=== PATIENT | male | born 2000 | race Caucasian/White ===

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

== ENCOUNTER → 2021-04-27 | Outpatient (CLI) | payer OTHER ==
[~2021-04-27] MED LIST: BACTROBAN OINT22 GM EXT; KEFLEX CAP 500500 MG PO; VIBRAMYCIN100 MG PO
== END ==
LOC: EXRD 08:16
DX: R10.11 Right upper quadrant pain (principal); K76.0 Fatty (change of) liver, not elsewhere classified
CPT/HCPCS: 76705

== ENCOUNTER 2021-07-23 22:02 | Emergency (ER) | payer OTHER | END 2021-07-24 00:30 | disposition left against medical advice (07) | LOC: ER1 22:02 | DX: T23.062A Burn of unspecified degree of back of left hand, initial encounter (principal); T20.00XA Burn of unspecified degree of head, face, and neck, unspecified site, initial encounter; T24.002A Burn of unspecified degree of unspecified site of left lower limb, except ankle and foot, initial encounter; T31.0 Burns involving less than 10% of body surface; Z23 Encounter for immunization; X08.8XXA Exposure to other specified smoke, fire and flames, initial encounter | CPT/HCPCS: 16000; 90471; 90714; 96372; 99283; J2270 ==

== ENCOUNTER 2022-01-12 01:46 | Emergency (ER) | payer OTHER ==
[2022-01-12] MEDS ORDERED: ONDANSETRON ODT4 MG SL (04:20)
== END 2022-01-12 04:29 | disposition home or self-care (01) ==
LOC: ER1 01:46
DX: R50.9 Fever, unspecified (principal); R11.0 Nausea; Z20.822 Contact with and (suspected) exposure to COVID-19
CPT/HCPCS: 0240U; 71046; 81001; 87081; 87880; 99283